=== PATIENT | male | born 1975 | race Caucasian/White ===

== ENCOUNTER → 2017-07-25 | Outpatient (REF) | LOC: M SMT 12:05 | DX: M54.5 Low back pain (principal) ==

== ENCOUNTER → 2017-08-04 | Outpatient (REF) | LOC: M SMT 10:43 | DX: M54.5 Low back pain (principal) ==

== ENCOUNTER → 2019-10-01 | Outpatient (CLI) | payer OTHER | LOC: M LABSMTC 13:03 | PROVIDERS: ATTEND Family Medicine | DX: Z11.59 Encounter for screening for other viral diseases (principal) | CPT/HCPCS: C9803; U0003 ==

== ENCOUNTER → 2024-12-16 | Outpatient (CLI) | payer OTHER ==
[~2024-12-16] VITALS: Ht 177.8 cm; Wt 106.8 kg
[~2024-12-16] MED LIST: **PLEASE UPDATE HEIGHT AND WEIGHT XX SCH; MULTTAB61 PO; OMEP1CAP73 PO; ONDA-282 PO; PROC10TA5 PO
[2024-12-16 08:50] VITALS: TEMP 97.9
[2024-12-16] MEDS: ceFAZolin SODIUM 2 GM in DEXTROSE 5% (D5W) ADV/MINI-BAG 50 ML IV ONE (09:21)
[2024-12-16] MEDS: NS (Normal Saline) 0.9% 1,000 ML IV SCH (09:22)
[2024-12-16] MEDS: MIDAZOLAM INJ 2 MG/2 ML VIAL IV PRN (09:28)
[2024-12-16] MEDS: LIDOCAINE 1% MDV 20 ML VIAL SC SCH (09:54)
[2024-12-16 10:30] VITALS: BP 132/54; O2SAT 98
== END ==
LOC: M IRPRO 08:41
PROVIDERS: ATTEND Internal Medicine Medical Oncology
DX: C62.92 Malignant neoplasm of left testis, unspecified whether descended or undescended (principal)
CPT/HCPCS: 36561; J0690; J1642; J2250

== ENCOUNTER → 2025-02-11 | Outpatient (CLI) | payer OTHER ==
[~2025-02-11] MED LIST changes: -**PLEASE UPDATE HEIGHT AND WEIGHT XX SCH; +ISOVUE-370 76% 100 ML VIAL As Ordered ONE
== END ==
LOC: M RAD 09:23
PROVIDERS: ATTEND Student in an Organized Health Care Education/Training Program
DX: R91.8 Other nonspecific abnormal finding of lung field (principal); C62.90 Malignant neoplasm of unspecified testis, unspecified whether descended or undescended
CPT/HCPCS: 71260; 74177; Q9967

== ENCOUNTER → 2025-02-28 | Outpatient (REF) ==
[~2025-02-28] MED LIST changes: -ISOVUE-370 76% 100 ML VIAL As Ordered ONE
== END ==
LOC: M PLAIMG 09:59
PROVIDERS: ATTEND Internal Medicine
DX: Z01.89 Encounter for other specified special examinations (principal)